=== PATIENT | female | born 1965 | race Caucasian/White ===

== ENCOUNTER 2016-11-27 15:43 | Emergency (ER) | payer OTHER ==
[~2016-11-27] VITALS: Ht 167.6 cm; Wt 72.9 kg
[~2016-11-27 15:43] MED LIST: ABILIFY5 MG PO; ADULT LOW DOSE81 M1 PO; AMBIEN10 MG PO; ASPIRIN E.C.81 M1 PO; ASPIRIN EC325 MG PO; ATARAX,VISTARIL50 M1 PO; ATARAX,VISTARIL50 MG PO; ATIVAN0.5 MG PO; ATIVAN1 MG PO; Atarax,Vistaril PO; BACLOFEN10 MG PO; BACTRIM,SEPT1 TABLET PO; BELLADONNA-PH16.2 MG PO; BENADRYL ALLERG25 MG PO; BUSPIRONE HCL15 MG PO; CALCIO DEL MAR500 MG PO; CALCIUM + D3 E1 EACH PO; CALCIUM 500 MG1 EACH PO; CALCIUM 600 +1 EA15 PO; CALCIUM 600 +1 EAC9 PO; CALCIUM 600 MG1 EAC1 PO; CALCIUM CARB 51 EACH PO; CALCIUM500 M3 PO; CHLORZOXAZONE500 MG PO; CIPRO500 M1 PO; CIPROFLOXACIN500 M1 PO; CLEOCIN300 MG PO; COLACE100 MG PO; COMPAZINE10 MG PO; CYANOCOBALAM1000 MCG PO; CYANOCOBALAMI100 MCG PO; CYCLOBENZAPRINE5 MG PO; DAILY VITE1 EAC1 PO; DESYREL100 MG PO; DICYCLOMINE HCL20 MG PO; DIFICID200 MG PO; DILAUDID2 MG PO; DRONABINOL2.5 MG PO; DURAGESIC25 MCG TD; Duragesic TD; EMLA 30 GM30 GM TP; ESTRACE0.5 MG PO; EXALGO8 MG PO; FLAGYL500 MG PO; FLEXERIL10 MG PO; FLORASTOR250 MG PO; FLUCONAZOLE200 MG PO; FOLIC ACID PO; FOLIC ACID0.4 MG PO; FOLIC ACID0.8 M1 PO; FOLIC ACID0.8 MG PO; FOLIC ACID1 MG PO; Folvite PO; GABAPENTIN300 MG PO; GABAPENTIN800 MG PO; GEODON80 MG PO; HYDROMORPHONE HC4 MG PO; HYDROXYZINE HCL50 MG PO; IBUPROFEN400 MG PO; IBUPROFEN800 MG PO; IMITREX25 MG PO; IMODIUM MS REL1 EACH PO; K-DUR20 MEQ PO; KADIAN30 MG PO; KENALOG,ARISTOC15 G2 TP; KLONOPIN0.5 M1 PO; LAMICTAL (BLUE)25 MG PO; LANSOPRAZOLE30 MG PO; LASIX20 MG PO; LEVAQUIN750 MG PO; LOMOTIL TABLET1 EACH PO; LOPERAMIDE2 M1 PO; LOPERAMIDE2 MG PO; LYRICA100 MG PO; LYRICA150 MG PO; LYRICA50 MG PO; LYRICA75 MG PO; MACROBID100 MG PO; MAG-OXIDE400 MG PO; MARTINIC1 EACH PO; MEDROL DOSEPAK4 MG PO; MELOXICAM15 MG PO; METOCLOPRAMIDE H5 MG PO; MOBIC15 MG PO; MORPHINE SULFAT15 M1 PO; MORPHINE SULFAT15 MG PO; MORPHINE SULFAT30 M1 PO; MORPHINE SULFAT30 M5 PO; MOTRIN800 MG PO; MULTI-DAY VITA1 EACH PO; MULTIVITAMIN1 EAC2 PO; NEURONTIN600 MG PO; NEURONTIN800 MG PO; NORCO 5/3251 TABLET PO; NORFLEX30 MG/ML; NYSTATIN-TRIAMC15 GM TP; ONDANSETRON ODT4 MG PO; PERCOCET 5-3251 EACH PO; PHENERGAN12.5 M1 PO; PHENERGAN12.5 MG PO; PHENERGAN12.5 MG PR; PRAVACHOL20 MG PO; PREVACID SOLUTA30 MG PO; PREVACID30 MG PO; PRISTIQ100 MG PO; PROCHLORPERAZIN10 MG PO; PROMETHAZINE HC25 M1 PO; PROMETHAZINE12.5 M1 PO; PROTONIX40 MG PO; PYRIDIUM100 MG PO; Phenergan PR; Prevacid PO; QUETIAPINE FUM400 MG PO; REGLAN10 MG PO; REGLAN5 MG PO; REGULOID0.52 GM PO; ROBITUSSIN AC,T10 ML PO; SEROQUEL XR400 MG PO; SEROQUEL200 MG PO; SEROQUEL400 MG PO; SEROquel PO; SSD25GM TP; STOOL SOFTENER1 EAC2 PO; STOOL SOFTENER1 EACH PO; STOOL SOFTENER100 MG PO; SUMATRIPTAN SUC25 MG PO; Senokot S,Pericolace PO; TESSALON200 MG PO; THERAGRAN1 TABLET PO; TOPAMAX100 MG PO; TOPAMAX25 MG PO; Tums PO; Tums,OsCal PO; VALTREX1000 MG PO; VANCOCIN HCL125 MG PO; VANCOMYCIN HCL125 MG PO; VITAMIN B12 100MCG PO; VITAMIN B122500 MCG PO; XANAX0.5 MG PO; XANAX1 MG PO; Xanax PO; ZANTAC150 MG PO; ZOFRAN4 MG PO; ZOFRAN8 MG PO; ZYPREXA10 MG PO; Zofran PO; Zyvox PO; [UNRECOGNIZED DRUG - OTHER] PO; [UNRECOGNIZED DRUG - OTHER] TP
[2016-11-27 16:42] LABS: HEMATOCRIT 33.4 % (36.0-46.0); MCH 23.9 PG (29.0-34.0); MCHC 31.1 G/DL (30.0-36.0); MCV 76.8 FL (83-99); PLATELET COUNT 254 K/uL (156-360); RBC DIS.WIDTH-CV 15.7 % (11.8-14.6); RBC DIS.WIDTH-SD 42.7 % (39-53); RED BLOOD COUNT 4.35 M/uL (3.80-5.20)
[2016-11-27 16:49] LABS: CHLORIDE 106 mEq/L (99-109); POTASSIUM 3.6 mEq/L (3.7-5.4); SODIUM 140 mEq/L (136-147)
[2016-11-27 16:51] LABS: GLUCOSE 91 mg/dL (70-99)
[2016-11-27 16:52] LABS: ANION GAP 10 MEQ/L (2-14)
[2016-11-27 16:55] LABS: GFR ESTIMATE (CALCULATED) > 59 mL/min/
[2016-11-27 16:56] LABS: UREA NITROGEN (BUN) 9 mg/dL (9-23)
[2016-11-27 18:49] LABS: INFLUENZA A VIRAL ANTIGEN NEGATIVE; INFLUENZA B VIRAL ANTIGEN NEGATIVE
[2016-11-27] MEDS ORDERED: TESSALON PERLE100 MG PO (19:21)
[2016-11-27] MEDS ORDERED: TYLENOL WITH C1 EACH PO (19:21)
[2016-11-27 19:40] VITALS: BP 110/83
== END 2016-11-27 19:41 | disposition home or self-care (01) ==
LOC: RME 15:43 → EME 15:43 → RME 19:41
PROVIDERS: Nurse Practitioner Family
DX: J06.9 Acute upper respiratory infection, unspecified (principal); K21.9 Gastro-esophageal reflux disease without esophagitis; Z85.44 Personal history of malignant neoplasm of other female genital organs; Z85.3 Personal history of malignant neoplasm of breast
CPT/HCPCS: 71020; 80048; 85027; 87502; 94640; 99281; 99285

== ENCOUNTER 2017-01-12 10:16 | Day surgery (SDC) | payer OTHER ==
[~2017-01-12] VITALS: Ht 167.6 cm; Wt 69.4 kg
[~2017-01-12 10:16] MED LIST changes: +CALCIUM 500 +1 EACH PO; +IMITREX50 MG PO; +PROBIOTIC1 EAC1 PO; +TESSALON PERLE100 MG PO; +TYLENOL WITH C1 EACH PO
[2017-01-12 11:02] VITALS: BP 105/68
[2017-01-12 17:47] VITALS: BP 143/83
[2017-01-12 19:35] VITALS: BP 132/91
[2017-01-12 23:00] VITALS: BP 165/72
[2017-01-12 23:04] VITALS: BP 108/70
[2017-01-13 03:05] VITALS: BP 106/64
[2017-01-13 07:16] VITALS: BP 103/71
[2017-01-13 11:31] VITALS: BP 117/81
== END 2017-01-13 15:24 | disposition home or self-care (01) ==
LOC: SDC 10:16 → 2SOUTH 15:44 → 2EAST 15:44
DX: Z42.1 Encounter for breast reconstruction following mastectomy (principal); Z90.12 Acquired absence of left breast and nipple; L59.9 Disorder of the skin and subcutaneous tissue related to radiation, unspecified; Y84.2 Radiological procedure and radiotherapy as the cause of abnormal reaction of the patient, or of later complication, without mention of misadventure at the time of the procedure; Z80.3 Family history of malignant neoplasm of breast; Z92.3 Personal history of irradiation; Z92.21 Personal history of antineoplastic chemotherapy; F41.9 Anxiety disorder, unspecified; F32.9 Major depressive disorder, single episode, unspecified; Z88.8 Allergy status to other drugs, medicaments and biological substances; Z83.49 Family history of other endocrine, nutritional and metabolic diseases; Z82.49 Family history of ischemic heart disease and other diseases of the circulatory system
CPT/HCPCS: 86850; 86900; 86901; 86920; G0378; J0131; J0690; J1100; J1170; J2250; J2405; J3010

== ENCOUNTER 2017-02-02 19:46 | Emergency (ER) | payer OTHER ==
[~2017-02-02] VITALS: Ht 167.6 cm; Wt 78.5 kg
[2017-02-03 01:17] LABS: BASOPHIL COUNT 0.1 K/uL (0-0.1); EOSINOPHIL (%) 10.1 % (0-5); EOSINOPHIL COUNT 0.7 K/uL (0-0.3); HEMATOCRIT 32.6 % (36.0-46.0); IMMATURE GRANULOCYTE (%) 0.1 % (0.0-0.7); INSTRUMENT ABS NEUTROPHIL CT 2.8 K/uL; LYMPHOCYTE COUNT 2.7 K/uL (1.0-2.8); MCH 23.7 PG (29.0-34.0); MCHC 29.8 G/DL (30.0-36.0); MCV 79.5 FL (83-99); MEAN PLAT.VOLUME 9.8 uM^3 (9.5-12.4); MONOCYTE COUNT 0.5 K/uL (0-0.8); NEUTROPHIL (%) 41.1 % (45-76); NEUTROPHIL COUNT 2.8 K/uL (1.8-6.4); PLATELET COUNT 337 K/uL (156-360); RBC DIS.WIDTH-CV 17.5 % (11.8-14.6); RBC DIS.WIDTH-SD 50.5 % (39-53); WHITE BLOOD COUNT 6.7 K/uL (4.1-10.2)
[2017-02-03 01:26] LABS: CHLORIDE 106 mEq/L (99-109); POTASSIUM 4.3 mEq/L (3.7-5.4); SODIUM 139 mEq/L (136-147)
[2017-02-03 01:28] LABS: GLUCOSE 95 mg/dL (70-99)
[2017-02-03 01:29] LABS: ANION GAP 8 MEQ/L (2-14)
[2017-02-03 01:32] LABS: GFR ESTIMATE (CALCULATED) > 59 mL/min/
[2017-02-03 01:33] LABS: UREA NITROGEN (BUN) 11 mg/dL (9-23)
[2017-02-03] MEDS ORDERED: PERCOCET 5/31 TABLET PO (04:37)
[2017-02-03 05:06] VITALS: BP 123/79
== END 2017-02-03 05:07 | disposition home or self-care (01) ==
LOC: EME 19:46
PROVIDERS: Emergency Medicine
DX: T81.89XA Other complications of procedures, not elsewhere classified, initial encounter (principal); Z98.82 Breast implant status; Z85.3 Personal history of malignant neoplasm of breast; D64.9 Anemia, unspecified
CPT/HCPCS: 71260; 80048; 83605; 85025; 87040; 99281; 99285; J2060; J3010; J7030

== ENCOUNTER 2017-08-17 10:28 | Day surgery (SDC) | payer OTHER ==
[~2017-08-17] VITALS: Ht 167.6 cm; Wt 79.0 kg
[~2017-08-17 10:28] MED LIST changes: +FLEXERIL5 MG PO; +KEFLEX250 MG PO; +LORCET 5-325 M1 EACH PO; +PERCOCET 5/31 TABLET PO; +TRANSDERM-SCOP1 EACH TD
[2017-08-17 11:10] VITALS: BP 129/79
[2017-08-17 17:20] VITALS: BP 131/72
[2017-08-17 18:20] VITALS: BP 127/87
== END 2017-08-17 18:20 | disposition home or self-care (01) ==
LOC: SDC 10:28
DX: N65.1 Disproportion of reconstructed breast (principal); Z85.3 Personal history of malignant neoplasm of breast; Z90.12 Acquired absence of left breast and nipple; Z92.21 Personal history of antineoplastic chemotherapy; F32.9 Major depressive disorder, single episode, unspecified; F41.9 Anxiety disorder, unspecified; G43.909 Migraine, unspecified, not intractable, without status migrainosus; Z88.8 Allergy status to other drugs, medicaments and biological substances; Z90.710 Acquired absence of both cervix and uterus; Z90.49 Acquired absence of other specified parts of digestive tract; Z82.49 Family history of ischemic heart disease and other diseases of the circulatory system; Z83.3 Family history of diabetes mellitus
CPT/HCPCS: 88305; C1789; J0330; J0690; J1170; J2405; J2765; J3010

== ENCOUNTER 2017-09-22 19:28 | Inpatient (IN) | payer OTHER ==
[~2017-09-22] VITALS: Ht 162.6 cm; Wt 85.0 kg
[2017-09-22 20:10] LABS: EOSINOPHIL (%) 0.3 % (0-5); EOSINOPHIL COUNT 0.1 K/uL (0-0.3); HEMATOCRIT 38.6 % (36.0-46.0); IMMATURE GRANULOCYTE (%) 1.2 % (0.0-0.7); IMMATURE GRANULOCYTE COUNT 0.3 K/uL; INSTRUMENT ABS NEUTROPHIL CT 19.5 K/uL; LYMPHOCYTE COUNT 1.4 K/uL (1.0-2.8); MCH 24.9 PG (29.0-34.0); MCHC 30.6 G/DL (30.0-36.0); MCV 81.4 FL (83-99); MONOCYTE (%) 5.4 % (3-12); MONOCYTE COUNT 1.2 K/uL (0-0.8); NEUTROPHIL (%) 86.5 % (45-76); NEUTROPHIL COUNT 19.5 K/uL (1.8-6.4); PLATELET COUNT 263 K/uL (156-360); RBC DIS.WIDTH-CV 18.2 % (11.8-14.6); RBC DIS.WIDTH-SD 54.4 % (39-53); RED BLOOD COUNT 4.74 M/uL (3.80-5.20); WHITE BLOOD COUNT 22.5 K/uL (4.1-10.2)
[2017-09-22 20:20] LABS: CHLORIDE 103 mEq/L (99-109); POTASSIUM 4.2 mEq/L (3.7-5.4); SODIUM 137 mEq/L (136-147)
[2017-09-22 20:22] LABS: GLUCOSE 125 mg/dL (70-99)
[2017-09-22 20:23] LABS: ANION GAP 11 MEQ/L (2-14)
[2017-09-22 20:24] LABS: TOTAL BILIRUBIN 0.5 mg/dL (0.0-1.0)
[2017-09-22 20:25] LABS: ALKALINE PHOSPHATASE 113 IU/L (3-129)
[2017-09-22 20:26] LABS: GFR ESTIMATE (CALCULATED) > 59 mL/min/
[2017-09-22 20:27] LABS: UREA NITROGEN (BUN) 11 mg/dL (9-23)
[2017-09-22] MEDS ORDERED: ONDANSETRON HCL8 MG PO (22:20)
[2017-09-22] MEDS ORDERED: COLACE100 MG PO (22:21)
[2017-09-22] MEDS ORDERED: ADVIL,NUPRIN,M200 MG PO (22:22)
[2017-09-22 22:31] VITALS: BP 117/67
[2017-09-23 03:39] VITALS: BP 103/68
[2017-09-23 07:25] VITALS: BP 101/69
[2017-09-23 11:15] VITALS: BP 106/60
[2017-09-23 11:57] LABS: EOSINOPHIL (%) 0.5 % (0-5); EOSINOPHIL COUNT 0.1 K/uL (0-0.3); HEMATOCRIT 30.2 % (36.0-46.0); IMMATURE GRANULOCYTE (%) 0.9 % (0.0-0.7); IMMATURE GRANULOCYTE COUNT 0.1 K/uL; INSTRUMENT ABS NEUTROPHIL CT 13.4 K/uL; LYMPHOCYTE COUNT 0.8 K/uL (1.0-2.8); MCH 25.2 PG (29.0-34.0); MCHC 30.8 G/DL (30.0-36.0); MCV 81.8 FL (83-99); MEAN PLAT.VOLUME 10.1 uM^3 (9.5-12.4); MONOCYTE (%) 2.4 % (3-12); MONOCYTE COUNT 0.4 K/uL (0-0.8); NEUTROPHIL (%) 90.5 % (45-76); NEUTROPHIL COUNT 13.4 K/uL (1.8-6.4); PLATELET COUNT 198 K/uL (156-360); RBC DIS.WIDTH-SD 54.4 % (39-53); WHITE BLOOD COUNT 14.8 K/uL (4.1-10.2)
[2017-09-23 12:17] LABS: RED BLOOD COUNT 3.69 M/uL (3.80-5.20)
[2017-09-23 15:05] VITALS: BP 112/69
[2017-09-23 19:13] VITALS: BP 130/68
[2017-09-23 23:35] VITALS: BP 128/72
[2017-09-24 03:45] VITALS: BP 119/75
[2017-09-24 07:20] VITALS: BP 128/84
[2017-09-24 11:20] VITALS: BP 118/68
[2017-09-24 12:58] VITALS: BP 131/82
[2017-09-24 17:22] VITALS: BP 140/88
[2017-09-24 20:21] VITALS: BP 130/62
[2017-09-25 00:52] VITALS: BP 116/52
[2017-09-25 04:04] VITALS: BP 118/62
[2017-09-25 07:16] LABS: HEMATOCRIT 29.9 % (36.0-46.0); MCH 24.5 PG (29.0-34.0); MCHC 29.4 G/DL (30.0-36.0); MCV 83.3 FL (83-99); MEAN PLAT.VOLUME 9.9 uM^3 (9.5-12.4); PLATELET COUNT 219 K/uL (156-360); RBC DIS.WIDTH-CV 17.9 % (11.8-14.6); RBC DIS.WIDTH-SD 54.4 % (39-53); RED BLOOD COUNT 3.59 M/uL (3.80-5.20); WHITE BLOOD COUNT 10.8 K/uL (4.1-10.2)
[2017-09-25 08:27] VITALS: BP 117/72
[2017-09-25 08:40] VITALS: BP 117/72
== END 2017-09-25 14:08 | disposition home or self-care (01) | DRG 854 ==
LOC: EME 19:28 → EDOF 21:08 → 2EAST 21:08 → ENRESERV 21:09 → 2EAST 22:05
PROVIDERS: Internal Medicine Infectious Disease; Surgery Plastic and Reconstructive Surgery
DX: A41.02 Sepsis due to Methicillin resistant Staphylococcus aureus (principal); T85.79XA Infection and inflammatory reaction due to other internal prosthetic devices, implants and grafts, initial encounter; N61.0 Mastitis without abscess; F41.9 Anxiety disorder, unspecified; F32.9 Major depressive disorder, single episode, unspecified; G43.909 Migraine, unspecified, not intractable, without status migrainosus; K21.9 Gastro-esophageal reflux disease without esophagitis; Y83.1 Surgical operation with implant of artificial internal device as the cause of abnormal reaction of the patient, or of later complication, without mention of misadventure at the time of the procedure; Z90.10 Acquired absence of unspecified breast and nipple; Z85.44 Personal history of malignant neoplasm of other female genital organs; Z68.32 Body mass index [BMI] 32.0-32.9, adult; Z90.49 Acquired absence of other specified parts of digestive tract; Z85.3 Personal history of malignant neoplasm of breast; Z86.19 Personal history of other infectious and parasitic diseases; Z90.710 Acquired absence of both cervix and uterus; Z98.82 Breast implant status; Z83.3 Family history of diabetes mellitus; Z82.49 Family history of ischemic heart disease and other diseases of the circulatory system
CPT/HCPCS: 80053; 83605; 85025; 85027; 87040; 87070; 87075; 87077; 87147; 87186; 87205; 99281; 99285; J0690; J1100; J1885; J2020; J2250; J2405; J3010; J3370; J7050; J7120

== ENCOUNTER → 2017-09-27 | Emergency (ER) | payer OTHER ==
[~2017-09-27] VITALS: Ht 167.6 cm; Wt 85.1 kg
[~2017-09-27] MED LIST changes: +ADVIL,NUPRIN,M200 MG PO; +ONDANSETRON HCL8 MG PO
[2017-09-27 11:40] LABS: ADD MIUA? NO; BILIRUBIN NEGATIVE; BLOOD NEGATIVE; COLOR STRAW ((YELLOW)); GLUCOSE (STRIP) NEGATIVE; KETONES NEGATIVE; LEUKOCYTES NEGATIVE; NITRITE NEGATIVE; PROTEIN (STRIP) NEGATIVE; UCUL ADDED? NO; UROBILINOGEN 0.2 MG/DL (0.2-1.0)
[2017-09-27 11:51] LABS: BASOPHIL COUNT 0.1 K/uL (0-0.1); EOSINOPHIL (%) 1.9 % (0-5); EOSINOPHIL COUNT 0.2 K/uL (0-0.3); IMMATURE GRANULOCYTE (%) 3.9 % (0.0-0.7); IMMATURE GRANULOCYTE COUNT 0.4 K/uL; INSTRUMENT ABS NEUTROPHIL CT 6.8 K/uL; LYMPHOCYTE COUNT 2.1 K/uL (1.0-2.8); MCH 24.4 PG (29.0-34.0); MCV 81.4 FL (83-99); MEAN PLAT.VOLUME 9.3 uM^3 (9.5-12.4); MONOCYTE (%) 5.3 % (3-12); MONOCYTE COUNT 0.5 K/uL (0-0.8); NEUTROPHIL (%) 67.5 % (45-76); NEUTROPHIL COUNT 6.8 K/uL (1.8-6.4); PLATELET COUNT 302 K/uL (156-360); RBC DIS.WIDTH-CV 17.5 % (11.8-14.6); RBC DIS.WIDTH-SD 52.3 % (39-53); RED BLOOD COUNT 4.42 M/uL (3.80-5.20)
[2017-09-27 11:52] LABS: CHLORIDE 105 mEq/L (99-109); POTASSIUM 3.7 mEq/L (3.7-5.4); SODIUM 141 mEq/L (136-147)
[2017-09-27 11:53] LABS: GLUCOSE 97 mg/dL (70-99)
[2017-09-27 11:55] LABS: ANION GAP 11 MEQ/L (2-14)
[2017-09-27 11:57] LABS: GFR ESTIMATE (CALCULATED) > 59 mL/min/
[2017-09-27 11:58] LABS: UREA NITROGEN (BUN) 9 mg/dL (9-23)
[2017-09-27 16:38] VITALS: BP 119/88
== END | disposition home or self-care (01) ==
LOC: EME 11:08
DX: T85.698A Other mechanical complication of other specified internal prosthetic devices, implants and grafts, initial encounter (principal); Z98.86 Personal history of breast implant removal; Z98.890 Other specified postprocedural states; R07.89 Other chest pain; R10.9 Unspecified abdominal pain; R11.0 Nausea; R19.7 Diarrhea, unspecified; Z85.3 Personal history of malignant neoplasm of breast; Z90.10 Acquired absence of unspecified breast and nipple; Z85.44 Personal history of malignant neoplasm of other female genital organs; Z90.710 Acquired absence of both cervix and uterus; Z90.49 Acquired absence of other specified parts of digestive tract
CPT/HCPCS: 80048; 81003; 83605; 85025; 87493; 99281; 99284; J1200; J2405; J2765; J7030

== ENCOUNTER 2017-10-15 16:26 | Inpatient (IN) | payer OTHER ==
[~2017-10-15] VITALS: Ht 167.6 cm; Wt 89.0 kg
[2017-10-15] MEDS ORDERED: ADVIL,NUPRIN,M200 MG PO (18:13)
[2017-10-15] MEDS ORDERED: VICODIN 5-3001 EACH PO (18:14)
[2017-10-15] MEDS ORDERED: FOLIC ACID0.8 M1 PO (18:18)
[2017-10-15] MEDS ORDERED: ONDANSETRON HCL8 MG PO (18:19)
[2017-10-15] MEDS ORDERED: COMPAZINE10 MG PO (18:20)
[2017-10-15 18:23] LABS: CHLORIDE 108 mEq/L (99-109); POTASSIUM 4.1 mEq/L (3.7-5.4); SODIUM 140 mEq/L (136-147)
[2017-10-15 18:25] LABS: GLUCOSE 105 mg/dL (70-99)
[2017-10-15 18:26] LABS: ANION GAP 6 MEQ/L (2-14)
[2017-10-15 18:27] LABS: TOTAL BILIRUBIN 0.2 mg/dL (0.0-1.0)
[2017-10-15 18:29] LABS: ALKALINE PHOSPHATASE 103 IU/L (3-129); GFR ESTIMATE (CALCULATED) > 59 mL/min/
[2017-10-15 18:30] LABS: UREA NITROGEN (BUN) 9 mg/dL (9-23)
[2017-10-15 18:37] LABS: EOSINOPHIL (%) 2.7 % (0-5); EOSINOPHIL COUNT 0.2 K/uL (0-0.3); HEMATOCRIT 29.2 % (36.0-46.0); IMMATURE GRANULOCYTE (%) 0.4 % (0.0-0.7); INSTRUMENT ABS NEUTROPHIL CT 4.1 K/uL; LYMPHOCYTE COUNT 2.2 K/uL (1.0-2.8); MCH 25.6 PG (29.0-34.0); MCHC 30.5 G/DL (30.0-36.0); MCV 83.9 FL (83-99); MONOCYTE (%) 7.2 % (3-12); MONOCYTE COUNT 0.5 K/uL (0-0.8); NEUTROPHIL (%) 58.2 % (45-76); NEUTROPHIL COUNT 4.1 K/uL (1.8-6.4); RBC DIS.WIDTH-CV 19.8 % (11.8-14.6); RBC DIS.WIDTH-SD 55.8 % (39-53)
[2017-10-15 19:25] LABS: MEAN PLAT.VOLUME 10.1 uM^3 (9.5-12.4)
[2017-10-15 19:26] LABS: PLATELET COUNT 204 K/uL (156-360); RED BLOOD COUNT 3.48 M/uL (3.80-5.20)
[2017-10-15 21:04] VITALS: BP 141/90
[2017-10-15 23:16] LABS: METH RESISTANT S AUREUS PCR NEGATIVE (NEGATIVE)
[2017-10-15 23:18] LABS: PROBE CHECK PASS; SPECIMEN PROCESSING CONTROL PASS
[2017-10-15 23:20] VITALS: BP 132/75
[2017-10-16 03:06] VITALS: BP 102/66
[2017-10-16 07:10] VITALS: BP 109/75
[2017-10-16 11:44] VITALS: BP 117/71
[2017-10-16 16:00] VITALS: BP 118/75
[2017-10-16 19:51] VITALS: BP 115/65
[2017-10-17 00:03] VITALS: BP 117/78
[2017-10-17 08:20] VITALS: BP 106/67
[2017-10-17 15:59] VITALS: BP 113/71
[2017-10-17 23:39] VITALS: BP 120/76
[2017-10-18 07:40] VITALS: BP 118/67
[2017-10-18 15:41] VITALS: BP 129/84
[2017-10-19 00:13] VITALS: BP 100/58
[2017-10-19 07:20] VITALS: BP 115/76
[2017-10-19 07:32] LABS: PTT 25.3 SEC (25-37)
[2017-10-19 16:00] VITALS: BP 116/68
== END 2017-10-19 18:29 | disposition home or self-care (01) | DRG 921 ==
LOC: EME 16:26 → EDOF 17:35 → 2EAST 17:35 → ENRESERV 17:43 → 2EAST 20:45
PROVIDERS: Emergency Medicine; Internal Medicine Infectious Disease; Surgery Plastic and Reconstructive Surgery
PROC: 0W983ZX Drainage of Chest Wall, Percutaneous Approach, Diagnostic (ICD-10-PCS; principal; 2017-10-19)
DX: L76.34 Postprocedural seroma of skin and subcutaneous tissue following other procedure (principal); Y83.8 Other surgical procedures as the cause of abnormal reaction of the patient, or of later complication, without mention of misadventure at the time of the procedure; Z98.82 Breast implant status; Z85.3 Personal history of malignant neoplasm of breast; F32.9 Major depressive disorder, single episode, unspecified; F41.9 Anxiety disorder, unspecified; Z90.12 Acquired absence of left breast and nipple; G89.29 Other chronic pain; Z90.710 Acquired absence of both cervix and uterus; Z86.14 Personal history of Methicillin resistant Staphylococcus aureus infection; Z68.30 Body mass index [BMI] 30.0-30.9, adult; D64.9 Anemia, unspecified; K21.9 Gastro-esophageal reflux disease without esophagitis
CPT/HCPCS: 76642; 76942; 80053; 80202; 85025; 85610; 85730; 86140; 87040; 87070; 87075; 87205; 87641; 90686; 99281; 99285; J0690; J1885; J2020; J2270; J2405; J3010; J3370; J3480; J7030

== ENCOUNTER 2018-03-30 15:34 | Emergency (ER) | payer OTHER ==
[~2018-03-30] VITALS: Ht 167.6 cm; Wt 92.2 kg
[~2018-03-30 15:34] MED LIST changes: +VICODIN 5-3001 EACH PO
[2018-03-30] MEDS ORDERED: AUGMENTIN875 MG PO (17:37)
[2018-03-30] MEDS ORDERED: MOTRIN600 MG PO (17:37)
[2018-03-30 17:56] VITALS: BP 129/82
== END 2018-03-30 17:57 | disposition home or self-care (01) ==
LOC: EME 15:34
DX: H60.92 Unspecified otitis externa, left ear (principal); K21.9 Gastro-esophageal reflux disease without esophagitis; G43.909 Migraine, unspecified, not intractable, without status migrainosus; F41.9 Anxiety disorder, unspecified; F32.9 Major depressive disorder, single episode, unspecified; Z79.891 Long term (current) use of opiate analgesic; Z87.2 Personal history of diseases of the skin and subcutaneous tissue; Z86.14 Personal history of Methicillin resistant Staphylococcus aureus infection; Z90.10 Acquired absence of unspecified breast and nipple; Z90.49 Acquired absence of other specified parts of digestive tract; Z85.44 Personal history of malignant neoplasm of other female genital organs; Z85.3 Personal history of malignant neoplasm of breast; Z91.02 Food additives allergy status; Z91.048 Other nonmedicinal substance allergy status; Z88.8 Allergy status to other drugs, medicaments and biological substances
CPT/HCPCS: 99281; 99284

== ENCOUNTER 2018-04-02 15:05 | Emergency (ER) | payer OTHER ==
[~2018-04-02] VITALS: Ht 167.6 cm; Wt 91.7 kg
[~2018-04-02 15:05] MED LIST changes: +AUGMENTIN875 MG PO; +MOTRIN600 MG PO
[2018-04-02] MEDS ORDERED: NORCO 5/3251 TABLET PO (21:06)
[2018-04-02 21:29] VITALS: BP 130/73
== END 2018-04-02 21:30 | disposition home or self-care (01) ==
LOC: EME 15:05
DX: H92.02 Otalgia, left ear (principal); R51 Headache; M54.2 Cervicalgia; Z85.44 Personal history of malignant neoplasm of other female genital organs; Z85.3 Personal history of malignant neoplasm of breast; F32.9 Major depressive disorder, single episode, unspecified; Z90.710 Acquired absence of both cervix and uterus; Z88.8 Allergy status to other drugs, medicaments and biological substances
CPT/HCPCS: 70450; 70491; 99281; 99284; J7040

== ENCOUNTER 2018-06-12 15:46 | Emergency (ER) | payer OTHER ==
[~2018-06-12] VITALS: Ht 167.6 cm; Wt 88.4 kg
[2018-06-12 16:15] LABS: HEMATOCRIT 33.7 % (36.0-46.0); HEMOGLOBIN 10.5 G/DL (11.9-15.5); MCH 25.9 PG (29.0-34.0); MCHC 31.2 G/DL (30.0-36.0); PLATELET COUNT 211 K/uL (156-360); RBC DIS.WIDTH-CV 15.9 % (11.8-14.6); RBC DIS.WIDTH-SD 48.1 % (39-53); RED BLOOD COUNT 4.06 M/uL (3.80-5.20); WHITE BLOOD COUNT 5.8 K/uL (4.1-10.2)
[2018-06-12 16:28] LABS: CHLORIDE 105 mEq/L (99-109); SODIUM 141 mEq/L (136-147)
[2018-06-12 16:30] LABS: GLUCOSE 89 mg/dL (70-99)
[2018-06-12 16:34] LABS: GFR ESTIMATE (CALCULATED) > 59 mL/min/; UREA NITROGEN (BUN) 7 mg/dL (9-23)
[2018-06-12 16:56] LABS: APPEARANCE CLEAR ((CLEAR)); BILIRUBIN NEGATIVE; BLOOD NEGATIVE; COLOR STRAW ((YELLOW)); GLUCOSE (STRIP) NEGATIVE; KETONES NEGATIVE; LEUKOCYTES NEGATIVE; NITRITE NEGATIVE; PROTEIN (STRIP) NEGATIVE; SPECIFIC GRAVITY 1.009 (1.000-1.030); UCUL ADDED? NO; UROBILINOGEN 0.2 MG/DL (0.2-1.0)
[2018-06-12 17:16] LABS: ALBUMIN 4.1 g/dL (3.2-4.8)
[2018-06-12 17:19] LABS: TOTAL PROTEIN 6.9 g/dL (6.4-8.3)
[2018-06-12 17:21] LABS: TOTAL BILIRUBIN 0.3 mg/dL (0.0-1.0)
[2018-06-12 17:22] LABS: ALKALINE PHOSPHATASE 119 IU/L (3-129)
[2018-06-12 17:24] LABS: AST (GOT) 42 IU/L (2-34); DIRECT BILIRUBIN 0.1 mg/dL (0.0-0.3)
[2018-06-12 17:25] LABS: ALT (GPT) 31 IU/L (3-49); LIPASE 13 U/L (1.0-51.0)
[2018-06-12 22:24] VITALS: BP 108/78
== END 2018-06-12 22:25 | disposition home or self-care (01) ==
LOC: EME 15:46
PROVIDERS: Emergency Medicine
DX: R10.31 Right lower quadrant pain (principal); R11.0 Nausea; Z85.44 Personal history of malignant neoplasm of other female genital organs; Z85.3 Personal history of malignant neoplasm of breast; Z90.12 Acquired absence of left breast and nipple; Z90.710 Acquired absence of both cervix and uterus; Z90.49 Acquired absence of other specified parts of digestive tract; K76.0 Fatty (change of) liver, not elsewhere classified
CPT/HCPCS: 74177; 76856; 80048; 80076; 81003; 83605; 83690; 85027; 93975; 99281; 99285; J1200; J2765

== ENCOUNTER 2018-06-25 15:52 | Observation (INO) | payer OTHER ==
[~2018-06-25] VITALS: Ht 167.6 cm; Wt 90.4 kg
[2018-06-25 16:49] LABS: HEMATOCRIT 34.6 % (36.0-46.0); HEMOGLOBIN 10.7 G/DL (11.9-15.5); MCH 26.4 PG (29.0-34.0); MCHC 30.9 G/DL (30.0-36.0); MCV 85.2 FL (83-99); PLATELET COUNT 199 K/uL (156-360); RBC DIS.WIDTH-CV 15.8 % (11.8-14.6); RED BLOOD COUNT 4.06 M/uL (3.80-5.20); WHITE BLOOD COUNT 6.9 K/uL (4.1-10.2)
[2018-06-25 17:01] LABS: CHLORIDE 104 mEq/L (99-109)
[2018-06-25 17:02] LABS: POTASSIUM 4.1 mEq/L (3.7-5.4); SODIUM 140 mEq/L (136-147)
[2018-06-25 17:03] LABS: GLUCOSE 96 mg/dL (70-99)
[2018-06-25 17:07] LABS: CREATININE 0.9 mg/dL (0.6-1.3); GFR ESTIMATE (CALCULATED) > 59 mL/min/
[2018-06-25 17:08] LABS: UREA NITROGEN (BUN) 11 mg/dL (9-23)
[2018-06-25 17:10] LABS: TROP-I INTERPRETATION NEGATIVE; TROPONIN-I < 0.01 ng/mL (0.0-0.30)
[2018-06-25] MEDS ORDERED: QUETIAPINE FUM400 MG PO (21:10)
[2018-06-25] MEDS ORDERED: DRONABINOL2.5 MG PO (21:10)
[2018-06-25] MEDS ORDERED: PROMETHAZINE12.5 M1 PO (21:10)
[2018-06-25] MEDS ORDERED: FENTANYL1 EAC1 TD (21:11)
[2018-06-25] MEDS ORDERED: INDERAL20 MG PO (21:16)
[2018-06-25] MEDS ORDERED: GABAPENTIN300 MG PO (21:16)
[2018-06-25] MEDS ORDERED: HYDROCODON-ACE1 EAC7 PO (21:18)
[2018-06-25] MEDS ORDERED: CYCLOBENZAPRINE10 MG PO (21:18)
[2018-06-25] MEDS ORDERED: FENTANYL1 EAC5 TD (21:19)
[2018-06-25] MEDS ORDERED: NEURONTIN300 MG PO (21:21)
[2018-06-25 23:15] VITALS: BP 120/67
[2018-06-25 23:54] LABS: ALBUMIN 3.7 g/dL (3.2-4.8)
[2018-06-25 23:57] LABS: TOTAL PROTEIN 6.3 g/dL (6.4-8.3)
[2018-06-25 23:58] LABS: TOTAL BILIRUBIN 0.2 mg/dL (0.0-1.0)
[2018-06-25 23:59] LABS: ALKALINE PHOSPHATASE 93 IU/L (3-129)
[2018-06-26 00:02] LABS: AST (GOT) 27 IU/L (2-34); DIRECT BILIRUBIN 0.1 mg/dL (0.0-0.3)
[2018-06-26 00:03] LABS: ALT (GPT) 22 IU/L (3-49); LIPASE 21 U/L (1.0-51.0)
[2018-06-26 00:05] LABS: TROP-I INTERPRETATION NEGATIVE; TROPONIN-I < 0.01 ng/mL (0.0-0.30)
[2018-06-26 04:53] VITALS: BP 92/60
[2018-06-26 05:41] LABS: HEMOGLOBIN 9.5 G/DL (11.9-15.5); MCH 25.7 PG (29.0-34.0); MCHC 30.6 G/DL (30.0-36.0); MCV 83.8 FL (83-99); PLATELET COUNT 178 K/uL (156-360); RBC DIS.WIDTH-CV 15.9 % (11.8-14.6); RBC DIS.WIDTH-SD 48.7 % (39-53); WHITE BLOOD COUNT 5.8 K/uL (4.1-10.2)
[2018-06-26 06:01] LABS: CHLORIDE 108 MEQ/L (99-109); CREATININE 0.9 MG/DL (0.6-1.3); GFR ESTIMATE (CALCULATED) > 59 mL/min/; GLUCOSE 92 mg/dL (70-99); POTASSIUM 4.3 MEQ/L (3.7-5.4); SODIUM 144 MEQ/L (136-147); UREA NITROGEN (BUN) 10 mg/dL (9-23)
[2018-06-26 06:03] LABS: TROP-I INTERPRETATION NEGATIVE; TROPONIN-I < 0.01 ng/mL (0.0-0.30)
[2018-06-26 07:21] VITALS: BP 103/62
[2018-06-26 11:34] VITALS: BP 105/60
[2018-06-28] MEDS ORDERED: OXAYDO5 MG PO (11:27)
== END 2018-06-26 15:16 | disposition home or self-care (01) ==
LOC: EME 15:52 → EDOF 22:12 → 4SOUTH 22:12 → ENRESERV 22:14 → 4SOUTH 23:15
PROVIDERS: Hospitalist; Physician Assistant
DX: R07.89 Other chest pain (principal); D50.9 Iron deficiency anemia, unspecified; G89.29 Other chronic pain; M79.602 Pain in left arm; Z85.3 Personal history of malignant neoplasm of breast; Z90.12 Acquired absence of left breast and nipple; Z92.21 Personal history of antineoplastic chemotherapy; Z92.3 Personal history of irradiation; K21.9 Gastro-esophageal reflux disease without esophagitis; E78.5 Hyperlipidemia, unspecified; Z85.44 Personal history of malignant neoplasm of other female genital organs; Z90.710 Acquired absence of both cervix and uterus; F32.9 Major depressive disorder, single episode, unspecified; D64.9 Anemia, unspecified; R79.1 Abnormal coagulation profile; R94.5 Abnormal results of liver function studies; Z90.49 Acquired absence of other specified parts of digestive tract; Z80.42 Family history of malignant neoplasm of prostate; Z80.0 Family history of malignant neoplasm of digestive organs; Z82.49 Family history of ischemic heart disease and other diseases of the circulatory system; Z82.3 Family history of stroke; Z81.8 Family history of other mental and behavioral disorders; Z88.8 Allergy status to other drugs, medicaments and biological substances
CPT/HCPCS: 71046; 71275; 80048; 80076; 83690; 84484; 85027; 85379; 93005; 93971; 99281; 99285; G0378; J1650; J1756; J2270; J7030; J7050

== ENCOUNTER 2018-07-01 11:17 | Observation (INO) | payer OTHER ==
[~2018-07-01] VITALS: Ht 167.6 cm; Wt 89.3 kg
[~2018-07-01 11:17] MED LIST changes: +CYCLOBENZAPRINE10 MG PO; +FENTANYL1 EAC1 TD; +FENTANYL1 EAC5 TD; +HYDROCODON-ACE1 EAC7 PO; +INDERAL20 MG PO; +NEURONTIN300 MG PO; +OXAYDO5 MG PO
[2018-07-01 12:15] LABS: HEMATOCRIT 33.2 % (36.0-46.0); HEMOGLOBIN 10.4 G/DL (11.9-15.5); MCH 26.7 PG (29.0-34.0); MCHC 31.3 G/DL (30.0-36.0); MCV 85.1 FL (83-99); PLATELET COUNT 200 K/uL (156-360); RBC DIS.WIDTH-CV 16.1 % (11.8-14.6); RBC DIS.WIDTH-SD 48.8 % (39-53); WHITE BLOOD COUNT 6.2 K/uL (4.1-10.2)
[2018-07-01 12:29] LABS: CHLORIDE 104 mEq/L (99-109); POTASSIUM 4.3 mEq/L (3.7-5.4); SODIUM 140 mEq/L (136-147)
[2018-07-01 12:31] LABS: GLUCOSE 96 mg/dL (70-99)
[2018-07-01 12:35] LABS: CREATININE 0.9 mg/dL (0.6-1.3); GFR ESTIMATE (CALCULATED) > 59 mL/min/
[2018-07-01 12:36] LABS: UREA NITROGEN (BUN) 8 mg/dL (9-23)
[2018-07-01 13:20] LABS: APPEARANCE CLOUDY ((CLEAR)); BILIRUBIN NEGATIVE; BLOOD NEGATIVE; COLOR YELLOW ((YELLOW)); GLUCOSE (STRIP) NEGATIVE; KETONES NEGATIVE; LEUKOCYTES SMALL; NITRITE NEGATIVE; PROTEIN (STRIP) 30; SPECIFIC GRAVITY 1.016 (1.000-1.030); UROBILINOGEN 0.2 MG/DL (0.2-1.0)
[2018-07-01 13:33] LABS: BACTERIA 1+ /HPF; EPITHELIAL CELLS 1+ /HPF; MUCUS NONE SEEN /LPF; RED BLOOD CELLS 0-5 /HPF (0-5); WHITE BLOOD CELLS 0-5 /HPF (0-5)
[2018-07-01] MEDS ORDERED: LOPERAMIDE2 MG PO ×2 (17:35→17:36)
[2018-07-01] MEDS ORDERED: TOPAMAX25 MG PO (17:51)
[2018-07-01 19:09] LABS: AMPHETAMINE NEGATIVE (500 ng/mL); BARBITURATES NEGATIVE (200 ng/mL); BENZODIAZEPINES NEGATIVE (150 ng/mL); BUPRENORPHINE NEGATIVE (10 ng/mL); COCAINE NEGATIVE (150 ng/mL); METHADONE NEGATIVE (200 ng/mL); METHAMPHETAMINE NEGATIVE (500 ng/mL); OPIATES (MORPHINE) NEGATIVE (100 ng/mL); OXYCODONE NEGATIVE (100 ng/mL); PHENCYCLIDINE NEGATIVE (25 ng/mL); PROPOXYPHENE NEGATIVE (300 ng/mL); THC CANNABINOIDS NEGATIVE (50 ng/mL); TRICYCLIC ANTIDEPRESSANTS NEGATIVE (300 ng/mL)
[2018-07-01 20:23] VITALS: BP 111/59
[2018-07-01 23:12] VITALS: BP 107/63
[2018-07-02] VITALS (9 sets, daily range): BP systolic 109–143; BP diastolic 60–89
[2018-07-02 05:49] LABS: HEMATOCRIT 28.6 % (36.0-46.0); HEMOGLOBIN 8.7 G/DL (11.9-15.5); MCH 26.2 PG (29.0-34.0); MCHC 30.4 G/DL (30.0-36.0); MCV 86.1 FL (83-99); PLATELET COUNT 153 K/uL (156-360); RBC DIS.WIDTH-CV 16.1 % (11.8-14.6); RBC DIS.WIDTH-SD 49.4 % (39-53); RED BLOOD COUNT 3.32 M/uL (3.80-5.20); WHITE BLOOD COUNT 4.4 K/uL (4.1-10.2)
[2018-07-02 06:21] LABS: ALBUMIN 3.3 G/DL (3.2-4.8); ALKALINE PHOSPHATASE 82 IU/L (3-129); ALT (GPT) 18 IU/L (3-49); AST (GOT) 21 IU/L (2-34); CHLORIDE 111 MEQ/L (99-109); CREATININE 0.8 MG/DL (0.6-1.3); GFR ESTIMATE (CALCULATED) > 59 mL/min/; GLUCOSE 93 mg/dL (70-99); POTASSIUM 4.1 MEQ/L (3.7-5.4); SODIUM 144 MEQ/L (136-147); TOTAL BILIRUBIN 0.3 MG/DL (0.0-1.0); TOTAL PROTEIN 5.1 G/DL (6.4-8.3); UREA NITROGEN (BUN) 8 mg/dL (9-23)
[2018-07-03 00:13] VITALS: BP 104/67
[2018-07-03 08:56] LABS: BASOPHIL (%) 0.5 % (0-1); EOSINOPHIL (%) 3.8 % (0-5); EOSINOPHIL COUNT 0.1 K/uL (0-0.3); HEMATOCRIT 35.7 % (36.0-46.0); IMMATURE GRANULOCYTE (%) 0.3 % (0.0-0.7); LYMPHOCYTE (%) 42.2 % (15-42); LYMPHOCYTE COUNT 1.6 K/uL (1.0-2.8); MCH 27.3 PG (29.0-34.0); MCHC 32.2 G/DL (30.0-36.0); MCV 84.6 FL (83-99); MONOCYTE (%) 7.6 % (3-12); MONOCYTE COUNT 0.3 K/uL (0-0.8); NEUTROPHIL (%) 45.6 % (45-76); NEUTROPHIL COUNT 1.7 K/uL (1.8-6.4); NRBC (%) 0.5 /100 WBC (0-0); PLATELET COUNT 139 K/uL (156-360); RBC DIS.WIDTH-CV 16.5 % (11.8-14.6); RBC DIS.WIDTH-SD 49.5 % (39-53); WHITE BLOOD COUNT 3.7 K/uL (4.1-10.2)
[2018-07-03 09:08] LABS: HEMOGLOBIN 11.5 G/DL (11.9-15.5); RED BLOOD COUNT 4.22 M/uL (3.80-5.20)
[2018-07-03 09:23] LABS: CHLORIDE 109 MEQ/L (99-109); GFR ESTIMATE (CALCULATED) > 59 mL/min/; GLUCOSE 91 mg/dL (70-99); POTASSIUM 4.3 MEQ/L (3.7-5.4); SODIUM 144 MEQ/L (136-147); UREA NITROGEN (BUN) 8 mg/dL (9-23)
[2018-07-03 12:56] VITALS: BP 130/74
[2018-07-03] MEDS ORDERED: PROTONIX40 MG PO (15:53)
[2018-07-03] MEDS ORDERED: ANTIVERT25 MG PO (15:54)
[2018-07-03] MEDS ORDERED: REGLAN10 MG PO (15:54)
[2018-07-03 16:18] VITALS: BP 124/83
[2018-07-03 20:12] VITALS: BP 104/57
[2018-07-03 23:56] VITALS: BP 103/63
[2018-07-04 08:08] VITALS: BP 114/61
[2018-07-04 08:22] VITALS: BP 139/81
[2018-07-04 08:41] LABS: BASOPHIL (%) 0.5 % (0-1); EOSINOPHIL (%) 2.9 % (0-5); EOSINOPHIL COUNT 0.1 K/uL (0-0.3); HEMATOCRIT 35.1 % (36.0-46.0); IMMATURE GRANULOCYTE (%) 0.2 % (0.0-0.7); LYMPHOCYTE COUNT 2.1 K/uL (1.0-2.8); MCHC 31.3 G/DL (30.0-36.0); MCV 86.2 FL (83-99); MONOCYTE (%) 7.3 % (3-12); MONOCYTE COUNT 0.3 K/uL (0-0.8); NEUTROPHIL (%) 39.1 % (45-76); NEUTROPHIL COUNT 1.6 K/uL (1.8-6.4); PLATELET COUNT 137 K/uL (156-360); RBC DIS.WIDTH-CV 16.7 % (11.8-14.6); RBC DIS.WIDTH-SD 49.2 % (39-53); RED BLOOD COUNT 4.07 M/uL (3.80-5.20); WHITE BLOOD COUNT 4.1 K/uL (4.1-10.2)
[2018-07-04 11:29] VITALS: BP 124/72
== END 2018-07-04 15:14 | disposition home or self-care (01) ==
LOC: EME 11:17 → 4SOUTH 17:48 → EDOF 17:48 → ENRESERV 17:51 → 4SOUTH 19:45
PROVIDERS: Family Medicine; Internal Medicine; Physician Assistant
PROC: B246ZZZ Ultrasonography of Right and Left Heart (ICD-10-PCS; principal; 2018-07-03)
DX: I95.9 Hypotension, unspecified (principal); E86.0 Dehydration; R11.0 Nausea; N39.0 Urinary tract infection, site not specified; D50.9 Iron deficiency anemia, unspecified; K90.0 Celiac disease; R42 Dizziness and giddiness; G89.29 Other chronic pain; Z79.891 Long term (current) use of opiate analgesic; Z85.3 Personal history of malignant neoplasm of breast; Z85.44 Personal history of malignant neoplasm of other female genital organs; F41.9 Anxiety disorder, unspecified; F32.9 Major depressive disorder, single episode, unspecified; G43.909 Migraine, unspecified, not intractable, without status migrainosus; K21.9 Gastro-esophageal reflux disease without esophagitis; I89.0 Lymphedema, not elsewhere classified; Z86.19 Personal history of other infectious and parasitic diseases; Z86.14 Personal history of Methicillin resistant Staphylococcus aureus infection; Z92.21 Personal history of antineoplastic chemotherapy; Z92.3 Personal history of irradiation; Z90.49 Acquired absence of other specified parts of digestive tract; Z90.12 Acquired absence of left breast and nipple; Z88.8 Allergy status to other drugs, medicaments and biological substances; Z80.0 Family history of malignant neoplasm of digestive organs; Z83.3 Family history of diabetes mellitus; Z82.49 Family history of ischemic heart disease and other diseases of the circulatory system; Z83.49 Family history of other endocrine, nutritional and metabolic diseases; Z91.048 Other nonmedicinal substance allergy status; Z90.710 Acquired absence of both cervix and uterus
CPT/HCPCS: 80048; 80053; 81003; 82272; 85025; 85027; 86300 90; 87086; 87641; 93005; 93306; 99281; 99285; C1753; C9113; G0378; J0696; J1650; J2405; J2765; J7030; J7040; J7050; Q0167